=== PATIENT | male | born 1985 | race Two or more races ===

== ENCOUNTER 2018-06-08 03:13 | Inpatient (IN) ==
[2018-06-08 04:39] LABS: Baso # (Auto) 0.1 th/mm3 (0.0-0.2); Eos # (Auto) 0.2 th/mm3 (0.0-0.4); Eos % (Auto) 2.3 % (0.0-4.0); Hematocrit 45.5 % (39.0-51.0); Hemoglobin 15.6 gm/dL (13.0-17.0); Lymph # (Auto) 0.8 th/mm3 (1.0-4.8); Lymph % (Auto) 12.1 % (9.0-44.0); Mean Corpuscular HGB Conc 34.2 % (32.0-36.0); Mean Corpuscular Hemoglobin 30.7 pg (27.0-34.0); Mean Corpuscular Volume 89.8 fL (80.0-100.0); Mono # (Auto) 0.5 th/mm3 (0.0-0.9); Mono % (Auto) 6.7 % (0.0-8.0); Neut # (Auto) 5.4 th/mm3 (1.8-7.7); Neut % (Auto) 77.9 % (16.0-70.0); Platelet Count 234 th/mm3 (150-450); Red Blood Count 5.07 mil/mm3 (4.50-5.90); Red Cell Distribution Width 12.9 % (11.6-17.2)
[2018-06-08] MEDS ORDERED: Ketorolac Inj 30 MG/ML (IVP) Vial IV.PUSH ONE (04:47)
[2018-06-08] MEDS ORDERED: Sod Chloride 0.9% Inj 1,000 ML IV.SIG ONE (04:47)
[2018-06-08] MEDS ORDERED: Ciprofloxacin 500 MG Tablet PO ONE (04:47)
[2018-06-08 04:54] LABS: Alanine Aminotransferase 15 U/L (12-78); Albumin 3.9 g/dL (3.4-5.0); Anion Gap 8 meq/L (5-15); Aspartate Aminotransferase 13 U/L (15-37); Blood Urea Nitrogen 14 mg/dL (7-18); Calcium 8.9 mg/dL (8.5-10.1); Carbon Dioxide 27.2 meq/L (21.0-32.0); Chloride 106 meq/L (98-107); Glomerular Filtration Rate 47 mL/min (>89); Glucose,Random 97 mg/dL (74-106); Potassium 3.6 meq/L (3.5-5.1); Sodium 141 meq/L (136-145)
[2018-06-08 04:57] LABS: Alkaline Phosphatase 49 U/L (45-117); Total Protein 7.2 g/dL (6.4-8.2)
--- NOTE | 2018-06-08 05:36 | CT ---
EXAM DATE: 06/08/2018 5:18 AM EDT AGE/SEX: 33 years / Male INDICATIONS: Left lower quadrant pain. CLINICAL DATA: This is the patient's initial encounter. Patient reports that signs and symptoms have been present for 1 day and indicates a pain score of 5/10. MEDICAL/SURGICAL HISTORY: Renal calculi. Appendectomy. RADIATION DOSE: 6.71 CTDI (mGy) COMPARISON: [facility] [place], CT ABDOMEN & PELVIS W CONTRAST, 06/05/2013. . TECHNIQUE: Multiple contiguous axial images were obtained through the abdomen. Images were obtained using multiple row detector helical technique. Using automated exposure control and adjustment of the mA and/or kV according to patient size, radiation dose was kept as low as reasonably achievable to o btain optimal diagnostic quality images. DICOM format image data is available electronically for rev iew and comparison. FINDINGS: LOWER LUNGS: The visualized lower lungs are clear. LIVER: The liver has a homogeneous density without volume loss. There is no dilation of the biliary tree. SPLEEN: Homogeneous density without enlargement. PANCREAS: Unremarkable without mass or calcification. KIDNEYS: There is a 5 mm calcified proximal left ureteral calculus with associated mild to moderate left sided hydroureteronephrosis. No additional radiopaque renal calculi are demonstrated. No signifi cant contour deforming renal abnormality. ADRENAL GLANDS: Unremarkable. AORTA: Nydia-aneurysmal. BOWEL/MESENTERY: The bowel loops are grossly unremarkable. The cecum and sigmoid colon have a jamey l configuration. ABDOMINAL WALL: Intact. RETROPERITONEUM: Subcentimeter retroperitoneal lymph nodes do not meet CT size criteria. BLADDER: Contours are smooth. Stable calcifications in the left pelvis. REPRODUCTIVE: No abnormal masses or calcifications seen. BONY STRUCTURES: Unremarkable. 1. 5 mm proximal left ureteral calculus with associated mild to moderate left-sided hydroureteroneph rosis. Electronically signed by: Josh Carranza MD 06/08/2018 5:34 AM EDT
[2018-06-08] MEDS ORDERED: Bisacodyl 10 MG Supp RECTAL PRN (06:40)
[2018-06-08] MEDS ORDERED: Acetaminophen 325 MG Tablet PO PRN (06:40)
[2018-06-08] MEDS ORDERED: Temazepam 15 MG Capsule PO PRN (06:40)
[2018-06-08] MEDS ORDERED: Sod Chloride 0.9% Inj 1,000 ML IV.CONT SCH ×2 (06:45→13:30)
[2018-06-08 06:50] LABS: Bilirubin,Urine Negative (Negative); Clarity,Urine Hazy (Clear); Color,Urine Yellow (Yellw/Straw); Glucose,Urine (UA) Negative (Negative); Hyaline Casts,Urine 1 /lpf (0-3); Leukocyte Esterase,Urine Negative (Negative); Mucus,Urine Few /lpf (Occasional); Nitrite,Urine Negative (Negative); Specific Gravity,Urine 1.027 (1.002-1.035); Squamous Epithelial Cell,Urine <1 /hpf (0-5)
--- NOTE | 2018-06-08 06:55 | ED ---
HPI General Chief Complaint: Abdominal Pain Stated Complaint: Flank pain Time Seen by Provider: 06/08/18 04:21 History of Present Illness HPI narrative: 33-year-old male with acute left-sided flank pain. Patient has a history of kidney stones and was seen at [facility] approximately 8 days ago and diagnosed with a left-sided kidney stone. He was given medications and his pain resolved however after a few days his pain returned and is worse than ever. He was told he had a small 2 or 3 mm stone at [facility] and given follow- up with urology. He has not followed up with urology yet because he feels the stone has passed Patient thinks as if this may be a new stone because he was also told there was another larger stone on the left side. Related Data Home Medications Medication Instructions Recorded Confirmed tamsulosin [Flomax] 0.4 mg PO DAILY 06/08/18 06/08/18 Allergies Allergy/AdvReac Type Severity Reaction Status Date / Time No Known Allergies Allergy Verified 06/08/18 03:21 Review of Systems Except as stated in HPI: all other systems reviewed are negative [facility] Medical History Medical History Kidney stones (Acute) Surgical History Surgical History Hx of appendectomy (Acute) Social History Social History Substance History: No History of Abuse Second Hand Smoke Exposure: Yes Smoking Status: Current every day smoker Tobacco Type: Cigarettes How Often Do You Have a Drink Containing Alcohol: 2 to 4 times a month Recent Travel in [facility] within the Last 8 Weeks: No Recent Out of Country Travel within the Last 8 Weeks: No Immunization History Tetanus Immunization: >5 Years Hx Influenza Vaccine This Season: Yes Exam Narrative Exam Narrative: GENERAL: 33-year-old male in acute distress secondary to pain SKIN: Focused skin assessment warm/dry. HEAD: Atraumatic. Normocephalic. EYES: Pupils equal and round. No scleral icterus. No injection or drainage. ENT: No nasal bleeding or discharge. Mucous membranes pink and moist. NECK: Trachea midline. CARDIOVASCULAR: Regular rate and rhythm. No murmur appreciated. RESPIRATORY: No accessory muscle use. Clear to auscultation. Breath sounds equal bilaterally. GASTROINTESTINAL: Abdomen soft, non-tender, nondistended. Hepatic and splenic margins not palpable. Course Initial Documented Vital Signs Temperature 97.7 F 06/08/18 03:18 Pulse Rate 95 H 06/08/18 03:18 Respiratory Rate 24 06/08/18 03:18 Blood Pressure 148/76 H 06/08/18 03:18 Pulse Oximetry 100 06/08/18 03:18 Last Documented Vital Signs Temperature 98 F 06/08/18 03:20 Pulse Rate 88 06/08/18 03:20 Respiratory Rate 20 06/08/18 06:03 Blood Pressure 136/72 06/08/18 03:20 Pulse Oximetry 99 06/08/18 03:20 Medical Decision Making MDM Narrative Medical decision making narrative: Patient was seen and evaluated in the emergency department. He was given anti-inflammatory and pain medication. He was hydrated. His laboratory studies demonstrated an elevated creatinine consistent with renal insufficiency. His CT revealed a 5 mm-year-old calcaneus with a moderate degree of hydronephrosis. He was subsequently admitted to the [facility] Dr. Evelyn Ybarra. Lab Data Result diagrams: 06/08/18 04:30 06/08/18 04:30 Lab Results 06/08/18 06/08/18 06/08/18 Range/Units 04:30 04:30 06:10 WBC 7.0 (4.0-11.0) th/mm3 RBC 5.07 (4.50-5.90) mil/mm3 Hgb 15.6 (13.0-17.0) gm/dL Hct 45.5 (39.0-51.0) % MCV 89.8 (80.0-100.0) fL MCH 30.7 (27.0-34.0) pg MCHC 34.2 (32.0-36.0) % RDW 12.9 (11.6-17.2) % Plt Count 234 (150-450) th/mm3 MPV 7.0 (7.0-11.0) fL Neut % (Auto) 77.9 H (16.0-70.0) % Lymph % (Auto) 12.1 (9.0-44.0) % [place] % (Auto) 6.7 (0.0-8.0) % Eos % (Auto) 2.3 (0.0-4.0) % Baso % (Auto) 1.0 (0.0-2.0) % Neut # (Auto) 5.4 (1.8-7.7) th/mm3 Lymph # (Auto) 0.8 L (1.0-4.8) th/mm3 [place] # (Auto) 0.5 (0.0-0.9) th/mm3 Eos # (Auto) 0.2 (0.0-0.4) th/mm3 Baso # (Auto) 0.1 (0.0-0.2) th/mm3 WBC Differential . Differential Comment Auto diff final Sodium 141 (136-145) meq/L Potassium 3.6 (3.5-5.1) meq/L Chloride 106 (98-107) meq/L Carbon Dioxide 27.2 (21.0-32.0) meq/L Anion Gap 8 (5-15) meq/L BUN 14 (7-18) mg/dL Creatinine 1.71 H (0.60-1.30) mg/dL Estimated GFR 47 L (>89) mL/min Random Glucose 97 (74-106) mg/dL Calcium 8.9 (8.5-10.1) mg/dL Total Bilirubin 0.3 (0.2-1.0) mg/dL AST 13 L (15-37) U/L ALT 15 (12-78) U/L Alkaline Phosphatase 49 (45-117) U/L Total Protein 7.2 (6.4-8.2) g/dL Albumin 3.9 (3.4-5.0) g/dL Urine Color Yellow (Yellw/Straw) Urine Clarity Hazy H (Clear) Urine pH 7.0 (5.0-8.5) Ur Specific [place] 1.027 (1.002-1.035) Urine Protein 30 H (Neg-Trace) mg/dL Urine Glucose (UA) Negative (Negative) mg/dL Urine Ketones Trace (Negative) mg/dL Urine Occult Blood Large H (Negative) Urine Nitrate Negative (Negative) Urine Bilirubin Negative (Negative) Urine Urobilinogen Less than 2 (Less than 2) mg/dL Ur Leukocyte Esterase Negative (Negative) Urine RBC (0-3) /hpf Urine WBC 6 H (0-5) /hpf Ur Squamous Epith Cells <1 (0-5) /hpf Hyaline Casts 1 (0-3) /lpf Urine Mucus Few H (Occasional) /lpf Imaging Data Radiologist's impression: Abdomen/Pelvis CT 06/08/18 04:21 CONCLUSION: Discharge Plan Discharge Disposition Patient Disposition: 32 Still Patient Discharge Condition Condition: Stable Discharge Details Diagnosis: Kidney stones, Hydronephrosis, Acute renal insufficiency Physicians Team ED Provider: Candido Guevara Primary Care Provider: Primary Care Joseline Butterfield Other Providers: Rayo Mcgraw Rxs /Orders / Referrals /Forms Prescriptions: No Action tamsulosin [Flomax] 0.4 mg Capsule,Extended Release 24hr 0.4 mg PO DAILY RF: 0 Status ED Status: With Doctor
[2018-06-08] MEDS ORDERED: Morphine Inj 4 MG/ML Vial IV.PUSH PRN (07:15)
[2018-06-08] MEDS: Senna/Docusate Sodium 8.6/50 MG Tablet PO SCH ×2 (09:01→21:34)
--- NOTE | 2018-06-08 09:54 | P.HP ---
History of Present Illness Service: [facility] Primary Care Physician: No Primary Care Physician Chief Complaint: Left Flank Pain History of Present Illness: Patient is a 33-year-old male with known history of kidney stones, appendectomy who came into the hospital for complaints of acute left-sided flank pain. Patient states that he was diagnosed in another hospital with left kidney stone about a week ago and was sent home with Flomax, ketorolac, Zofran, hydrocodone. He was taking the Flomax but he continues to have severe pain. CT of the abdomen showed 5 mm left ureteral calculus with mild to moderate hydronephrosis. Patient was given pain medication and IV fluids for now. N.p.o. Urology has been consulted. States that he felt a lot better. Denies pain and discomfort. Denies SOB/ dyspnea. Denies chest pain, palpitations, headaches, dizziness. Denies fevers, chills, n/v/d. Denies hematuria, dysuria. - Diagnosis (1) Hydronephrosis (2) Kidney stones Inpatient Certification: I certify that the inpatient services were ordered in accordance with Medicare regulations governing the order. This includes certification that hospital inpatient services are reasonable and necessary and in the case of services not specified as inpatient-only under 42 CFR 419.22(n), that they are appropriately provided as inpatient services in accordance to with the 2-midnight benchmark under 43 CFR 412.3(e) Estimated Total Length of Stay (Days): 2 Plans for Post Hospital Care: Not yet determined Review of Systems All other systems reviewed negative except as stated in [facility] - History History Provided By: Patient - Medical History Medical History: Medical History (Last Updated 06/08/18 @ 09:08 by Aditi Hassan RN) Kidney stones (Acute) Encounter for colonoscopy due to history of colonic polyp - Surgical History Surgical History: Surgical History (Last Reviewed 06/08/18 @ 09:07 by Aditi Hassan RN) Hx of appendectomy (Acute) - Family History Family History: Family History (Last Updated 06/08/18 @ 09:49 by SAVITA Gunn) Mother Kidney stone - Tobacco History Second Hand Smoke Exposure: No Tobacco Use In Past 30 Days: Yes Smoking Status: Never smoker Tobacco Type: Cigarettes - Alcohol History How Often Do You Have a Drink Containing Alcohol: Monthly or less - Substance Use History Substance History: No History of Abuse - Travel History Recent Travel in the [place] Within the Last 8 Weeks: No Recent Travel Out of the Country Within the Last 8 Weeks: No - Immunization History Tetanus Immunization: Never Vaccinated Hx Influenza Vaccine This Season: No Medications and Allergies Active Medications: Active Medications Acetaminophen (Tylenol) 650 mg PO Q4H PRN PRN Reason: Temp > 100.4 Hydrocodone Bitart/Acetaminophen ([place] 5/325) 1 tab PO Q4H PRN PRN Reason: PAIN 3-5 Al Hydroxide/Mg Hydroxide (Milk Of Magnesia Liq) 30 ml PO Q12H PRN PRN Reason: Mild Constipation Bisacodyl (Dulcolax Supp) 10 mg RECTAL DAILY PRN PRN Reason: SEVERE CONSITIPATION Sodium Chloride (Ns Inj) 1,000 mls @ 100 mls/hr IV.CONT .Q10H [facility] Last Admin: 06/08/18 09:04 Dose: 100 mls/hr Lactulose (Lactulose Liq) 30 ml PO DAILY PRN PRN Reason: SEVERE CONSITIPATION Morphine Sulfate (Morphine Inj) 2 mg IV.PUSH Q4H PRN PRN Reason: PAIN SCALE 6 TO 10 Ondansetron HCl (Zofran Odt) 4 mg PO Q6H PRN PRN Reason: NAUSEA OR VOMITING Senna/Docusate Sodium (Elsie-Colace) 1 tab PO BID [facility] Last Admin: 06/08/18 09:01 Dose: 1 tab Sennosides (Senokot) 17.2 mg PO Q12H PRN PRN Reason: Moderate Constipation Sodium Chloride (Ns Flush) 2 ml IV.FLUSH BID [facility] Last Admin: 06/08/18 09:02 Dose: 2 ml Sodium Chloride (Ns Flush) 2 ml IV.FLUSH PRN PRN PRN Reason: FLUSH AFTER USING IV ACCESS Tamsulosin HCl (Flomax) 0.4 mg PO DAILY [facility] Last Admin: 06/08/18 09:01 Dose: 0.4 mg Temazepam (Restoril) 15 mg PO HS PRN PRN Reason: INSOMNIA Allergies Allergy/AdvReac Type Severity Reaction Status Date / Time No Known Allergies Allergy Verified 06/08/18 03:21 Exam Vital signs: Vital Signs 06/08/18 03:18 06/08/18 03:20 06/08/18 06:03 Temperature 97.7 F 98 F Pulse Rate 95 H 88 Respiratory Rate 24 20 20 Blood Pressure 148/76 H 136/72 Pulse Oximetry 100 99 06/08/18 06:41 Temperature 98.8 F Pulse Rate 80 Respiratory Rate 18 Blood Pressure 103/57 L Pulse Oximetry 100 Intake & Output 06/07/18 06/08/18 06/08/18 18:59 06:59 18:59 Intake Total 1000 / 1000 Balance 1000 / 1000 Weight 72.575 kg 72.57 kg Intake: IV 1000 / 1000 NS Inj 1,000 ML @ Wide Open IV. 1000 / 1000 SIG BOLUS ONE Rx#:[id number] Other: Weight On Admission 72.57 kg Narrative: GENERAL: This is a well-nourished, well-developed patient, in no apparent distress. SKIN: Warm and dry HEENT: Normocephalic. Pupils equal round and reactive. Nose without bleeding. Airway patent. NECK: Trachea midline. No JVD. Supple. CARDIOVASCULAR: Regular rate and rhythm without murmurs, gallops, or rubs. RESPIRATORY: Clear to auscultation. Breath sounds equal bilaterally. No wheezes , rales, or rhonchi. GASTROINTESTINAL: Abdomen soft, non-tender, nondistended. Bowel Sounds normoactive x4. MUSCULOSKELETAL: Extremities without clubbing, cyanosis, or edema. No CVS tenderness on exam NEUROLOGICAL: Awake and alert. Oriented to time, place, person. No focal neuro deficit. Moves all extremities. Normal speech. Results - Labs CBC & Chem 7: 06/08/18 04:30 06/08/18 04:30 Labs: Laboratory Results - last 24 hr 06/08/18 06/08/18 06/08/18 04:30 04:30 06:10 WBC 7.0 RBC 5.07 Hgb 15.6 Hct 45.5 MCV 89.8 MCH 30.7 MCHC 34.2 RDW 12.9 Plt Count 234 MPV 7.0 Neut % (Auto) 77.9 H Lymph % (Auto) 12.1 [place] % (Auto) 6.7 Eos % (Auto) 2.3 Baso % (Auto) 1.0 Neut # (Auto) 5.4 Lymph # (Auto) 0.8 L [place] # (Auto) 0.5 Eos # (Auto) 0.2 Baso # (Auto) 0.1 WBC Differential . Differential Comment Auto diff final Sodium 141 Potassium 3.6 Chloride 106 Carbon Dioxide 27.2 Anion Gap 8 BUN 14 Creatinine 1.71 H Estimated GFR 47 L Random Glucose 97 Calcium 8.9 Total Bilirubin 0.3 AST 13 L ALT 15 Alkaline Phosphatase 49 Total Protein 7.2 Albumin 3.9 Urine Color Yellow Urine Clarity Hazy H Urine pH 7.0 Ur Specific [place] 1.027 Urine Protein 30 H Urine Glucose (UA) Negative Urine Ketones Trace Urine Occult Blood Large H Urine Nitrate Negative Urine Bilirubin Negative Urine Urobilinogen Less than 2 Ur Leukocyte Esterase Negative Urine RBC Urine WBC 6 H Ur Squamous Epith Cells <1 Hyaline Casts 1 Urine Mucus Few H - Imaging Impressions Abdomen/Pelvis CT 06/08/18 04:21 CONCLUSION: Caprini VTE Risk Assessment Caprini VTE Risk Assessment: No/Low Risk (score <= 1) Caprini Risk Assessment Model: Point Value = 1 Point Value = 2 Point Value = 3 Point Value = 5 Age 41-60 Minor surgery BMI > 25 kg/m2 Swollen legs Varicose veins or History of unexplained or recurrent spontaneous Oral contraceptives or hormone replacement Sepsis (< 1 month) Serious lung disease, including pneumonia (< 1 month) Abnormal pulmonary function Acute myocardial infarction Congestive heart failure (< 1 month) History of inflammatory bowel disease Medical patient at bed rest Age 61-74 Arthroscopic surgery Major open surgery (> 45 min) Laparoscopic surgery (> 45 min) Malignancy Confined to bed (> 72 hours) Immobilizing plaster cast Central venous access Age >= 75 History of VTE Family history of VTE Factor V Leiden Prothrombin [id number] Lupus anticoagulant Anticardiolipin antibodies Elevated serum homocysteine Heparin-induced thrombocytopenia Other congenital or acquired thrombophilia Stroke (< 1 month) Elective arthroplasty Hip, pelvis, or leg fracture Acute spinal cord injury (< 1 month) Prophylaxis Regimen: Total Risk Factor Score Risk Level Prophylaxis Regimen 0-1 Low Early ambulation 2 Moderate Order ONE of the following: *Sequential Compression Device (SCD) *Heparin 5000 units SQ BID 3-4 Higher Order ONE of the following medications: *Heparin 5000 units SQ TID *Enoxaparin/Lovenox 40 mg SQ daily (WT < 150 kg, CrCl > 30 mL/min) *Enoxaparin/Lovenox 30 mg SQ daily (WT < 150 kg, CrCl > 10-29 mL/min) *Enoxaparin/Lovenox 30 mg SQ BID (WT < 150 kg, CrCl > 30 mL/min) AND/OR *Sequential Compression Device (SCD) 5 or more Highest Order ONE of the following medications: *Heparin 5000 units SQ TID (Preferred with Epidurals) *Enoxaparin/Lovenox 40 mg SQ daily (WT < 150 kg, CrCl > 30 mL/min) *Enoxaparin/Lovenox 30 mg SQ daily (WT < 150 kg, CrCl > 10-29 mL/min) *Enoxaparin/Lovenox 30 mg SQ BID (WT < 150 kg, CrCl > 30 mL/min) AND *Sequential Compression Device (SCD) Assessment and Plan - Assessment (1) Hydronephrosis Code(s): N13.30 - Unspecified hydronephrosis Status: Acute (2) Kidney stones Code(s): N20.0 - Calculus of kidney Status: Acute - Plan Patient is a 33-year-old male with known history of kidney stones, appendectomy who came into the hospital for complaints of acute left-sided flank pain. Left Ureteral Kidney Stone -CT of the abdomen and pelvis showed 5 mm proximal left ureteral calculus with associated mild to moderate left-sided hydroureteronephrosis. -Patient was given IV ketorolac in the ED, Cipro 1 dose, Zofran. Symptom relief reported. -N.p.o. for now, possible procedure. IVF -Urologist consulted, appreciate recommendation -Continue Flomax Acute kidney injury -Elevated creatinine, possibly secondary to left-sided hydroureteronephrosis. -Avoid nephrotoxins. Discussed with patient did not take ketorolac at home. Pain management could be with [place] or Tylenol. -Monitor labs. Repeat BMP in a.m. -IV fluids for hydration. DVT/GI Prop SCDs, Pepcid Code Status: Full Code Discussed Condition With: Patient, nursing Discharge Planning: Plan to DC home when clinically improved (1) Hydronephrosis Qualifiers: Hydronephrosis type: with renal calculous obstruction Qualified Code(s): N13.2 - Hydronephrosis with renal and ureteral calculous obstruction
--- NOTE | 2018-06-08 14:10 | MB ---
cc: Adam Santamaria DO DATE: 06/08/2018 HISTORY OF PRESENT ILLNESS: Mr. Moreno is a 33-year-old male with a history of a left ureteral calculus. He was seen at [facility] about 1 week ago and was having left-sided flank pain. He presented to [place] [facility] yesterday with recurrent left-sided flank pain. A CT scan demonstrated a 4.6 mm mid left ureteral stone. He did have some nausea at the time, but this has since resolved and presently he is pain free at the bedside. PAST MEDICAL HISTORY: Includes kidney stones. PAST SURGICAL HISTORY: Appendectomy and lithotripsy. SOCIAL HISTORY: He denies history of abuse, currently smokes every other day and drinks 2-4 times a month. FAMILY HISTORY: His mother is noted for stones. REVIEW OF SYSTEMS: Left-sided flank pain with some nausea. Denies chest pain or shortness of breath. Denies fever or chills, gait disturbances, bleeding disorders, neurologic problems, psychiatric problems. The remaining review of systems were reviewed and were negative. PHYSICAL EXAMINATION: VITAL SIGNS: Temperature is 98.8, heart rate 80, respiratory rate 18, blood pressure 103/57. GENERAL: Reveals a well-developed, well-nourished 33-year-old male in no acute distress. HEENT: Normocephalic, atraumatic. Pupils equal, round, regular and reactive to light. Extraocular movements intact. NECK: Supple. HEART: Regular rate and rhythm. LUNGS: Clear. ABDOMEN: Soft, nontender and nondistended. There is no CVA tenderness present time. GENITOURINARY: Normal phallus. Testes. EXTREMITIES: Show no evidence of any cyanosis, clubbing or edema. NEUROLOGIC: Cranial nerves 2-12 are intact. LABORATORY DATA: White count 7.0, hemoglobin 15.6, hematocrit 45.5, platelet count of 234. Sodium 141, potassium 3.6, chloride 106, CO2 of 27.2, BUN of 14, creatinine 1.7, and glucose of 97. Urinalysis shows negative nitrite, large blood, 6 white cells, numerous red cells. IMAGING STUDIES: Imaging shows a 4.6 mm left mid ureteral stone with mild hydronephrosis without significant obstruction. ASSESSMENT AND PLAN: This is a 33-year-old male with a 4.6 mm left mid ureteral stone. Would just recommend at this time continue IV hydration, pain management, would not proceed with stent or intervention at this time, can followup in the office in 2 weeks, strain all urine. Thank you for the consultation and allowing me to participate in the care of this patient. DO YANDY Huerta/JOSH , 01:49 PM , 01:56 PM
[2018-06-08] MEDS: Sod Chloride 0.9% Inj 1,000 ML IV.CONT SCH ×2 (15:44→21:34)
[2018-06-08 20:58] VITALS: RESP 18
[2018-06-08] MEDS ORDERED: Famotidine 20 MG Tablet PO SCH (21:00)
[2018-06-09] MEDS: Sod Chloride 0.9% Inj 1,000 ML IV.CONT SCH ×2 (04:04→10:37)
[2018-06-09 06:46] LABS: Baso % (Auto) 1.1 % (0.0-2.0); Eos # (Auto) 0.4 th/mm3 (0.0-0.4); Eos % (Auto) 9.7 % (0.0-4.0); Hematocrit 40.4 % (39.0-51.0); Hemoglobin 13.6 gm/dL (13.0-17.0); Lymph # (Auto) 1.2 th/mm3 (1.0-4.8); Lymph % (Auto) 29.8 % (9.0-44.0); Mean Corpuscular HGB Conc 33.6 % (32.0-36.0); Mean Corpuscular Hemoglobin 30.5 pg (27.0-34.0); Mean Corpuscular Volume 90.9 fL (80.0-100.0); Mean Platelet Volume 7.4 fL (7.0-11.0); Mono # (Auto) 0.4 th/mm3 (0.0-0.9); Mono % (Auto) 9.4 % (0.0-8.0); Neut # (Auto) 2.1 th/mm3 (1.8-7.7); Platelet Count 187 th/mm3 (150-450); Red Blood Count 4.45 mil/mm3 (4.50-5.90); White Blood Count 4.1 th/mm3 (4.0-11.0)
[2018-06-09 07:22] LABS: Alanine Aminotransferase 12 U/L (12-78); Alkaline Phosphatase 40 U/L (45-117); Anion Gap 7 meq/L (5-15); Aspartate Aminotransferase 11 U/L (15-37); Blood Urea Nitrogen 7 mg/dL (7-18); Carbon Dioxide 25.5 meq/L (21.0-32.0); Chloride 113 meq/L (98-107); Glomerular Filtration Rate Greater Than 89 mL/min (>89); Glucose,Random 81 mg/dL (74-106); Sodium 145 meq/L (136-145); Total Protein 5.9 g/dL (6.4-8.2)
[2018-06-09 08:05] VITALS: O2SAT 100
[2018-06-09] MEDS: Senna/Docusate Sodium 8.6/50 MG Tablet PO SCH (08:36)
--- NOTE | 2018-06-09 09:23 | P.PNFP ---
Subjective Interval history: Pt seen and examined for f/u of nephrolithiasis. Pt states he is feeling better. Still some mild discomfort in RLQ but feels ready to go home. Denies dysuria, hematuria, urgency, nausea, or vomiting. Has not passed a stone but thought he possibly saw some sediments in the strainer. Tolerating PO. He has never seen a urologist but is planning on following with Dr. Santamaria. He has never had a stone analyzed but states he still has one at home from a few years back. Mother also has history of kidney stones but he doesn't know what kind. Results - Labs Result diagrams: 06/09/18 05:40 06/09/18 05:40 Abnormal lab results 06/09/18 06/09/18 Range/Units 05:40 05:40 RBC 4.45 L (4.50-5.90) mil/mm3 [place] % (Auto) 9.4 H (0.0-8.0) % Eos % (Auto) 9.7 H (0.0-4.0) % Chloride 113 H (98-107) meq/L Calcium 8.0 L D (8.5-10.1) mg/dL AST 11 L (15-37) U/L Alkaline Phosphatase 40 L (45-117) U/L Total Protein 5.9 L D (6.4-8.2) g/dL Albumin 3.0 L D (3.4-5.0) g/dL Short CBC 06/09/18 Range/Units 05:40 WBC 4.1 (4.0-11.0) th/mm3 Hgb 13.6 D (13.0-17.0) gm/dL Hct 40.4 (39.0-51.0) % Plt Count 187 (150-450) th/mm3 BMP 06/09/18 05:40 Sodium 145 Potassium 4.0 Chloride 113 H Carbon Dioxide 25.5 BUN 7 Creatinine 0.87 Calcium 8.0 L D Liver Function 06/09/18 Range/Units 05:40 Total Bilirubin 0.5 (0.2-1.0) mg/dL AST 11 L (15-37) U/L ALT 12 (12-78) U/L Alkaline Phosphatase 40 L (45-117) U/L Albumin 3.0 L D (3.4-5.0) g/dL Physical Exam Vital signs: Vital Signs 06/08/18 12:00 06/08/18 20:00 06/09/18 00:00 Temperature 97.8 F 97.8 F 98.2 F Pulse Rate 82 75 Respiratory Rate 16 18 18 Blood Pressure 140/78 113/60 102/58 L Pulse Oximetry 100 97 97 06/09/18 04:00 06/09/18 08:00 Temperature 97.8 F 98.1 F Pulse Rate 77 85 Respiratory Rate 18 18 Blood Pressure 110/54 L 113/68 Pulse Oximetry 98 100 Intake & Output 06/08/18 06/09/18 06/09/18 18:59 06:59 18:59 Intake Total 1999 2946 / 2946 Balance 1999 2946 / 2946 Weight 72.57 kg 72.56 kg Intake: IV 1999 NS Inj 1,000 ML @ 150 mls/hr IV 999 / 999 .CONT .[id number] FRANCISCO JAVIER Rx#:[id number] NS Inj 1,000 ML @ Wide Open IV. 999 / 999 SIG BOLUS ONE Rx#:[id number] Oral 946 / 946 Other: # Voids 1 Date of Last Bowel Movement 06/08/18 Weight On Admission 72.57 kg Narrative: GENERAL: WN, WD male resting in bed in NAD. SKIN: Warm and dry. Tattoos over UE. HEENT: AT/NC. Pupils equal and round. MMM. HEART: RRR no m/r/g. LUNGS: CTAB without wheezes or crackles. ABDOMEN: +BS, soft, NT, ND. EXTREMITIES: No LE edema. 2+ pedal pulses. NEURO: Awake and alert. Nonfocal. PSYCH: Appropriate mood and affect. Assessment and Plan - Assessment (1) Hydronephrosis Code(s): N13.30 - Unspecified hydronephrosis Status: Acute (2) Kidney stones Code(s): N20.0 - Calculus of kidney Status: Acute - Assessment and Plan 33 year old male with history of nephrolithiasis admitted yesterday for left- sided flank pain found to have a 4.6 mm mid-left ureteral stone. 1. Ureteral stone - Urology consulted, no plan for stent or intervention. Recommend OP f/u in 2 weeks - Encouraged adequate hydration - Pain control (Rx for [place] provided) - Recommend Motrin TID with food - Continue Flomax, Rx provided - U/A with no signs of infection or indication to treat with concomitant abx - Strain urine and provide stone for analysis 2. EMMA - Resolved s/p IV hydration - Encouraged adequate hydration Dispo: D/C home today [facility] Prescription Drug Monitoring Database has been queried and verified prior to prescribing the controlled substance. Acute pain exception. This patient has normal, predicted, physiological, and time-limited response to an adverse stimulus associated with an acute kidney stone as described above. There is a lack of alternative treatment options other than to include the prescribed narcotic treatment for this condition. (1) Hydronephrosis Qualifiers: Hydronephrosis type: with renal calculous obstruction Qualified Code(s): N13.2 - Hydronephrosis with renal and ureteral calculous obstruction
[2018-06-09 12:19] VITALS: BP 107/61; PULSE 83; TEMP 97.8
== END 2018-06-09 14:18 | disposition home or self-care (01) ==
LOC: NEPC 03:13 → NEDA 07:13 → N06 07:59
PROVIDERS: ADMIT Family Medicine; ATTEND Family Medicine